=== PATIENT | female | born 1985 | race American Indian/Alaskan Native ===

== ENCOUNTER 2019-02-27 09:33 | Emergency (ER) | payer MEDICAID, OTHER ==
[2019-02-27 09:35] VITALS: BMI 22.9
[2019-02-27 09:47] VITALS: RESP 18; TEMP 98.9
[2019-02-27 10:38] LABS: BASO # 0.07 K/mm3 (0.0-2.0); BASO % 1.1 % (0.0-3.0); EOS # 0.3 (0.0-0.7); EOS % 4.5 % (1.5-5.0); HEMOGLOBIN 10.1 g/dL (12.0-16.0); LYMPH # 2.6 (1.2-3.4); LYMPH % 42.8 % (22.0-35.0); MEAN CELL VOLUME 74.8 fl (80.0-105.0); MEAN CORPUSCULAR HEMOGLOBIN 24.2 pg (25.0-35.0); MEAN CORPUSCULAR HGB CONC 32.4 g/dl (31.0-37.0); MONO # 0.5 (0.1-0.6); MONO % 8.1 % (1.0-6.0); RBC 4.17 10^6/uL (3.5-6.1); RED CELL DISTRIBUTION WIDTH 14.4 % (11.5-14.5); WHITE BLOOD COUNT 6.2 10^3/uL (4.5-11.0)
[2019-02-27 10:42] LABS: ALB/GLOB RATIO 1.4 (1.1-1.8); ALBUMIN 3.9 g/dL (3.0-4.8); ALT/SGPT 13 U/L (7-56); AST/SGOT 19 U/L (14-36); BLOOD UREA NITROGEN 10 mg/dL (7-21); GFR NON-AFRICAN AMERICAN > 60
--- NOTE | 2019-02-27 10:43 | ED PDOC ---
Arrival/HPI - General Chief Complaint: Abdominal Pain Time Seen by Provider: 02/27/19 09:36 Historian: Patient - History of Present Illness Narrative History of Present Illness (Text): 02/27/19 10:41 33-year-old female presents today with continued vaginal bleeding for the past 8 days. Patient states she was seen at the [facility] 2 days ago for which she was told that she had a threatened miscarriage. Patient states that there was a gestational sac without a pole. Patient states her beta was 7000 at that time. Patient states last night she passed a large blood clot and states that the bleeding has now decreased significantly. Patient is still complaining of some lower abdominal cramping. Patient denies fevers or chills or urinary symptoms. Patient states while in [facility] 2 days ago she was given RhoGam injection as her blood type is O-. Patient is . Past Medical History - Provider Review Nursing Documentation Reviewed: Yes - Travel History Have you recently traveled outside [place] w/in the past 3 mons?: No - Tetanus Immunization Tetanus Immunization: Unknown - Past Medical History Past Medical History: No Previous - Psychiatric Hx Substance Use: No - Past Surgical History Past Surgical History: No Previous - Suicidal Assessment Feels Threatened In Home Enviroment: No Family/Social History - Physician Review Nursing Documentation Reviewed: Yes Family/Social History: Unknown Family HX Smoking Status: Current Some Days Smoker Hx Alcohol Use: Yes Frequency of alcohol use: Socially Hx Substance Use: No Allergies/Home Meds Allergies/Adverse Reactions: Allergies nut - unspecified Allergy (Verified 02/27/19 09:48) ANGIOEDEMA shellfish derived Allergy (Verified 02/27/19 09:48) ANGIOEDEMA Home Medications: Home Meds Medication Instructions Recorded Confirmed No Known Home Med 02/27/19 02/27/19 Review of Systems - Review of Systems Constitutional: absent: Fatigue, Fevers Respiratory: absent: SOB, Cough Cardiovascular: absent: Chest Pain, Palpitations Gastrointestinal: Abdominal Pain. absent: Nausea, Vomiting Genitourinary Female: Vaginal Bleeding. absent: Dysuria, Frequency, Hematuria Musculoskeletal: absent: Arthralgias, Back Pain, Neck Pain Skin: absent: Rash, Pruritis Neurological: absent: Headache, Dizziness Psychiatric: absent: Anxiety, Depression Physical Exam Vital Signs Reviewed: Yes Vital Signs Temp Pulse Resp BP Pulse Ox 02/27/19 09:42 98.9 F 88 18 109/74 100 Temperature: Afebrile Blood Pressure: Normal Pulse: Regular Respiratory Rate: Normal Appearance: Positive for: Well-Appearing, Non-Toxic, Comfortable Pain Distress: None Mental Status: Positive for: Alert and Oriented X 3 - Systems Exam Head: Present: Atraumatic Mouth: Present: Moist Mucous Membranes Neck: Present: Normal Range of Motion Respiratory/Chest: Present: Clear to Auscultation, Good Air Exchange. No: Respiratory Distress, Accessory Muscle Use Cardiovascular: Present: Regular Rate and Rhythm, Normal S1, S2. No: Murmurs Abdomen: Present: Tenderness (minimal suprapubic tenderness.). No: Distention, Rebound, Guarding Genitourinary/Pelvic Exam: Present: Normal External Genitalia, Vaginal Bleeding (small amount of blood noted in vaginal vault), Cervical os Closed, Other (chaparoned by Nadine CORREA). No: Vaginal Lesions, Adenexal Tenderness, Adenexal Mass, Cervical Motion Tendernes Back: Present: Normal Inspection. No: CVA Tenderness, Midline Tenderness, Paraspinal Tenderness Upper Extremity: Present: Normal Inspection Lower Extremity: Present: Normal Inspection Neurological: Present: GCS=15, Speech Normal Skin: Present: Warm, Dry, Normal Color. No: Rashes Psychiatric: Present: Alert, Oriented x 3 Medical Decision Making ED Course and Treatment: 02/27/19 10:44 Patient is nontoxic well appearing in no distress. vital signs are stable. I spoke with Dr Live at [facility] and she confirmed that the patient did receive 300 mcg of RhoGam on 02/25/2019. CBC: wnl CMP: wnl Beta hC.10 TYPE AND SCREEN:O- Urinalysis: + blood Ultrasound:FINDINGS: UTERUS: Measures 11 cm. Retroverted. ENDOMETRIUM: Measures 1.2 cm in diameter. CERVIX: Cervix length measures approximately 3.4 cm. RIGHT OVARY: Measures 2.8 x 3.0 x 3.4 cm. Blood flow is demonstrated. LEFT OVARY: Measures 2.8 x 1.8 x 2.8 cm. Blood flow is demonstrated. FREE FLUID: No significant free fluid noted. OTHER FINDINGS: None. IMPRESSION: No evidence of intrauterine gestational sac. If indeed the patient is based on serum beta HCG values, the sonographic findings represent either: Very early IUP; embryonic demise; ectopic gestation. Follow-up with serial quantitative serum beta HCG measurements and post OBGYN follow-up as clinically indicated, since ectopic gestation cannot be excluded based only on sonographic findings. Pt states she has US 2 days ago at [facility] [place] [place] and she had gestational sac without pole with a beta 7038 (paperwork from other hospital confirms). case discussed with dr. tejada in depth; i advised him of labs, US and previous 300mcg of rhogam 2 days ago and current results. He states there is no need for an additional dose of rhogam. Discussed all the results the patient. advised f/u with the urogynecology physician within the next 2 days. advised immediate return if symptoms worsen,persist or if new symptoms develop. Impression: vaginal bleeding, threatened miscarriage Tylenol every 4 hours as needed for pain Increase fluids Followup with the [facility] within the next 2 days Return immediately if symptoms worsen persist or if new symptoms develop: High fevers, heavy bleeding, severe abdominal pain, vomiting, diarrhea, dizziness or weakness or any other concerning symptoms develop. Repeat beta hCG in 48 hours Reassessment Condition: Re-examined - RAD Interpretation Radiology Orders: 02/27/19 10:11 TRANSVAGINAL [US] Stat Disposition/Present on Arrival - Present on Arrival Any Indicators Present on Arrival: No History of DVT/PE: No History of Uncontrolled Diabetes: No Urinary Catheter: No History of Decub. Ulcer: No History Surgical Site Infection Following: None - Disposition Have Diagnosis and Disposition been Completed?: Yes Diagnosis: Threatened miscarriage Disposition: HOME/ ROUTINE Disposition Time: 10:45 Patient Plan: Discharge Condition: GOOD Discharge Instructions (ExitCare): Threatened Miscarriage (DC) Additional Instructions: Tylenol every 4 hours as needed for pain Increase fluids Followup with the [facility] within the next 2 days Return immediately if symptoms worsen persist or if new symptoms develop: High fevers, heavy bleeding, severe abdominal pain, vomiting, diarrhea, dizziness or weakness or any other concerning symptoms develop. Repeat beta hCG in 48 hours Referrals: Luis Alberto Tejada MD [Staff Provider] - [facility]Outside[facility] - [facility] - Follow up with primary [facility] [Outside] - Follow up with primary Forms: [email or web address] (German), WORK NOTE
[2019-02-27 11:10] LABS: URINE BILIRUBIN NEGATIVE (NEGATIVE); URINE BLOOD LARGE (NEGATIVE); URINE GLUCOSE (UA) NEGATIVE (NEGATIVE); URINE LEUKOCYTE ESTERASE NEGATIVE Leu/uL (NEGATIVE); URINE PROTEIN NEGATIVE mg/dL (<30 mg/dL); URINE UROBILINOGEN 0.2 E.U./dL (<1 E.U./dL)
[2019-02-27 11:12] LABS: URINE APPEARANCE SL CLOUDY (CLEAR); URINE COLOR YELLOW (YELLOW)
[2019-02-27 11:17] LABS: URINE BACTERIA MANY /hpf; URINE RBC 25 - 30 /hpf (0-2)
--- NOTE | 2019-02-27 11:26 | US ---
Date of service: 02/27/2019 HISTORY: vaginal bleeding + preg,previous US sac withoutFP COMPARISON: None available. TECHNIQUE: Transvaginal pelvic ultrasound FINDINGS: UTERUS: Measures 11 cm. Retroverted. ENDOMETRIUM: Measures 1.2 cm in diameter. CERVIX: Cervix length measures approximately 3.4 cm. RIGHT OVARY: Measures 2.8 x 3.0 x 3.4 cm. Blood flow is demonstrated. LEFT OVARY: Measures 2.8 x 1.8 x 2.8 cm. Blood flow is demonstrated. FREE FLUID: No significant free fluid noted. OTHER FINDINGS: None. IMPRESSION: No evidence of intrauterine gestational sac. If indeed the patient is based on serum beta HCG values, the sonographic findings represent either: Very early IUP; embryonic demise; ectopic gestation. Follow-up with serial quantitative serum beta HCG measurements and post OBGYN follow-up as clinically indicated, since ectopic gestation cannot be excluded based only on sonographic findings.
[2019-02-27 12:48] VITALS: BP 104/69; PULSE 78; O2SAT 98
== END 2019-02-27 12:48 | disposition home or self-care (01) ==
LOC: ED 09:33
DX: O20.0 Threatened abortion (principal)

== ENCOUNTER 2019-03-02 09:42 | Emergency (ER) | payer MEDICAID ==
[2019-03-02 09:42] VITALS: BMI 22.9
[2019-03-02 10:20] VITALS: BP 119/78; PULSE 70; RESP 18; TEMP 98.7; O2SAT 100
--- NOTE | 2019-03-02 10:42 | ED PDOC ---
Arrival/HPI - General Chief Complaint: Female Genitourinary Time Seen by Provider: 03/02/19 10:35 Historian: Patient - History of Present Illness Narrative History of Present Illness (Text): 03/02/19 10:42 33 year old female, with past medical history of asthma, presents to the ED for repeat beta hCG today. Patient reports persistent vaginal bleeding and lower abdominal cramping but denies any other medical complaints. Patient denies any fevers, chills, headache, dizziness, chest pain, shortness of breath, dyspnea on exertion, cough, diaphoresis, nausea, vomiting, diarrhea, back pain, neck pain, or any other complaints. Symptom Onset: Gradual Symptom Course: Unchanged Activities at Onset: Light Context: Home Past Medical History - Provider Review Nursing Documentation Reviewed: Yes - Infectious Disease Hx of Infectious Diseases: None - Tetanus Immunization Tetanus Immunization: Unknown - Reproductive Menopause: No - Past Medical History Past Medical History: No Previous - Psychiatric Hx Substance Use: No - Past Surgical History Past Surgical History: No Previous - Anesthesia Hx Anesthesia: No - Suicidal Assessment Feels Threatened In Home Enviroment: No Family/Social History - Physician Review Nursing Documentation Reviewed: Yes Family/Social History: No Known Family HX Smoking Status: Current Some Days Smoker Hx Alcohol Use: Yes Hx Substance Use: No Allergies/Home Meds Allergies/Adverse Reactions: Allergies nut - unspecified Allergy (Verified 03/02/19 10:21) ANGIOEDEMA shellfish derived Allergy (Verified 03/02/19 10:21) ANGIOEDEMA Home Medications: Home Meds Medication Instructions Recorded Confirmed No Known Home Med 02/27/19 02/27/19 Review of Systems - Physician Review All systems were reviewed & negative as marked: Yes - Review of Systems Constitutional: absent: Fevers Eyes: absent: Vision Changes Respiratory: absent: SOB, Cough Cardiovascular: absent: Chest Pain Gastrointestinal: Abdominal Pain. absent: Diarrhea, Nausea, Vomiting Genitourinary Female: Vaginal Bleeding. absent: Dysuria, Urine Output Changes Musculoskeletal: absent: Back Pain, Neck Pain Skin: absent: Rash Neurological: absent: Headache, Dizziness, Focal Weakness Endocrine: absent: Diaphoresis Psychiatric: absent: Anxiety Physical Exam Vital Signs Reviewed: Yes Vital Signs Temp Pulse Resp BP Pulse Ox 03/02/19 10:17 98.7 F 70 18 119/78 100 Temperature: Afebrile Blood Pressure: Normal Pulse: Regular Respiratory Rate: Normal Appearance: Positive for: Well-Appearing, Non-Toxic, Comfortable Pain Distress: None Mental Status: Positive for: Alert and Oriented X 3 - Systems Exam Head: Present: Atraumatic, Normocephalic Pupils: Present: PERRL Extroacular Muscles: Present: EOMI Conjunctiva: Present: Normal Neck: Present: Normal Range of Motion Respiratory/Chest: Present: Clear to Auscultation, Good Air Exchange. No: Respiratory Distress, Accessory Muscle Use Cardiovascular: Present: Regular Rate and Rhythm, Normal S1, S2. No: Murmurs Abdomen: No: Tenderness, Distention, Peritoneal Signs Back: Present: Normal Inspection Upper Extremity: Present: Normal Inspection. No: Cyanosis, Edema Lower Extremity: Present: Normal Inspection. No: Edema Neurological: Present: GCS=15, CN II-XII Intact, Speech Normal Skin: Present: Warm, Dry, Normal Color. No: Rashes Psychiatric: Present: Alert, Oriented x 3, Normal Insight, Normal Concentration Medical Decision Making ED Course and Treatment: 03/02/19 10:45 Impression: 33 year old female presents to the ED for repeat beta hCG. suspect miscarriage ro anmemia. Plan: -- Reassess and disposition Prior Visits: Notes and results from previous visits were reviewed. Progress Notes: The patient declines to have further medical evaluation and treatment and wishes to leave the Emergency Department. This action is against my medical advice to the patient, and with informed refusal. The patient was told that evaluation and treatment are necessary and a full explanation of the rationale was given. The risks of leaving were explained to the patient and include, but are not limited to, worsening of known or currently unknown conditions, permanent disability and from undiagnosed or untreated conditions The patient has the capacity to make this informed decision and understands the clinical situation and my explanation of the risks of leaving. The patient voluntarily accepts these risks, and a signed AMA form documenting our conversation was obtained. The patient was given the opportunity to ask questions and reconsider. The patient was encouraged to return to the Emergency Department at any time for further care. 03/02/19 14:56 reufse labs and pelvic. asking for dc as has to pic up child. - Scribe Statement The provider has reviewed the documentation as recorded by the Scribe Charlie Miner. All medical record entries made by the Scribe were at my direction and per sonally dictated by me. I have reviewed the chart and agree that the record accurately reflects my personal performance of the history, physical exam, medical decision making, and the department course for this patient. I have also personally directed, reviewed, and agree with the discharge instructions and disposition. Disposition/Present on Arrival - Present on Arrival Any Indicators Present on Arrival: No History of DVT/PE: No History of Uncontrolled Diabetes: No Urinary Catheter: No History of Decub. Ulcer: No History Surgical Site Infection Following: None - Disposition Have Diagnosis and Disposition been Completed?: Yes Diagnosis: Left against medical advice, Vaginal bleeding Disposition: AGAINST MEDICAL ADVICE Disposition Time: 10:00 Patient Problems: Current Active Problems Problem Status Onset Left against medical advice Acute Vaginal bleeding Acute Condition: UNKNOWN Discharge Instructions (ExitCare): Heavy Periods (DC), Leaving Against Medical Advice Additional Instructions: follow up with obgyn. return to any er with worsening. Forms: [employer] [facility] (Latvian)
== END 2019-03-02 10:41 | disposition left against medical advice (07) ==
LOC: ED 09:42
DX: N93.9 Abnormal uterine and vaginal bleeding, unspecified (principal)

== ENCOUNTER 2019-03-19 13:39 | Emergency (ER) | payer MEDICAID ==
[2019-03-19 13:40] VITALS: BMI 22.9
[2019-03-19 13:59] VITALS: O2SAT 100
[2019-03-19] MEDS ORDERED: Aluminum Hydroxide/Magnesium 30 ML, DiphenhydrAMINE 75 MG, Lidocaine 2% Viscous 30 ML PO ONE (14:01)
[2019-03-19 14:03] VITALS: TEMP 98.1
--- NOTE | 2019-03-19 14:04 | ED PDOC ---
Arrival/HPI - General Chief Complaint: ENT Problem Historian: Patient - History of Present Illness Narrative History of Present Illness (Text): 03/19/19 14:05 Patient is a 33 year old female, with a past medical history of asthma, who presents to the emergency department complaining of sore throat since 5 days. Patient notes associated swollen glands, difficulty swallowing, post nasal drip, and nasal congestion. Patient states difficulty swallowing began 2 days ago. She states gargling salt water 3 times a day with no improvement. Patient denies sick contact with children. Denies tonsillectomy. Patient denies fevers, chills, night sweats, vision changes, headache, dizziness, shortness of breath, cough, chest pain, abdominal pain, diarrhea, nausea, vomiting, dysuria, hematuria, back pain, neck pain, rash, diaphoresis, or any other complaint. Time/Duration: < week (5 days) Symptom Onset: Gradual Activities at Onset: Light Context: Home Past Medical History - Provider Review Nursing Documentation Reviewed: Yes - Infectious Disease Hx of Infectious Diseases: None - Tetanus Immunization Tetanus Immunization: Unknown - Past Medical History Past Medical History: No Previous - Psychiatric Hx Substance Use: No - Past Surgical History Past Surgical History: No Previous - Anesthesia Hx Anesthesia: No - Suicidal Assessment Feels Threatened In Home Enviroment: No Family/Social History - Physician Review Nursing Documentation Reviewed: Yes Family/Social History: Unknown Family HX Smoking Status: Current Some Days Smoker Hx Alcohol Use: Yes Hx Substance Use: No Allergies/Home Meds Allergies/Adverse Reactions: Allergies nut - unspecified Allergy (Verified 03/19/19 13:57) ANGIOEDEMA shellfish derived Allergy (Verified 03/19/19 13:57) ANGIOEDEMA Review of Systems - Physician Review All systems were reviewed & negative as marked: Yes - Review of Systems Constitutional: absent: Fevers, Night Sweats, Other (chills) Eyes: absent: Vision Changes ENT: Sore Throat, Sinus Congestion, Other (post nasal drip) Respiratory: absent: SOB, Cough Cardiovascular: absent: Chest Pain Gastrointestinal: absent: Abdominal Pain, Diarrhea, Nausea, Vomiting Genitourinary Female: absent: Dysuria, Hematuria Musculoskeletal: absent: Back Pain, Neck Pain Skin: absent: Rash Neurological: absent: Headache Hemo/Lymphatic: Adenopathy (swollen glands) Physical Exam Vital Signs Reviewed: Yes Vital Signs Temp Pulse Resp Pulse Ox 03/19/19 14:03 98.1 F 03/19/19 13:57 81 16 100 Pulse: Regular Respiratory Rate: Normal Appearance: Positive for: Well-Appearing, Non-Toxic, Comfortable Pain Distress: None Mental Status: Positive for: Alert and Oriented X 3 - Systems Exam Head: Present: Atraumatic, Normocephalic Pupils: Present: PERRL Extroacular Muscles: Present: EOMI Conjunctiva: Present: Normal Mouth: Present: Moist Mucous Membranes Pharnyx: Present: ERYTHEMA, TONSILS ENLARGED. No: EXUDATE (no tonsillar eudates) Neck: Present: Normal Range of Motion, Lymphadenopathy (mild anterior cervical lympadenopathy) Respiratory/Chest: Present: Clear to Auscultation, Good Air Exchange. No: Respiratory Distress, Accessory Muscle Use, Wheezes, Rales, Rhonchi Cardiovascular: Present: Regular Rate and Rhythm, Normal S1, S2. No: Murmurs, Rub, Gallop Abdomen: Present: Normal Bowel Sounds. No: Tenderness, Distention, Peritoneal Signs, Rebound, Guarding Back: Present: Normal Inspection Upper Extremity: Present: Normal Inspection. No: Cyanosis, Edema Lower Extremity: Present: Normal Inspection. No: Edema Neurological: Present: GCS=15, CN II-XII Intact, Speech Normal Skin: Present: Warm, Dry, Normal Color. No: Rashes Psychiatric: Present: Alert, Oriented x 3, Normal Insight, Normal Concentration Medical Decision Making ED Course and Treatment: 03/19/19 14:05 Impression: 33 year old female who presents to the emergency department complaining of sore throat since 5 days. Plan: -- Maalox -- Benadryl -- Rapid Strep -- Reassess and disposition Prior Visits: Notes and results from previous visits were reviewed. Progress Notes: 03/19/19 14:40 Rapid Strep negative for strep. Patient updated on lab findings and advised to follow up with her ENT surgeon. She will be given a script as well as follow up. She demonstrates understanding and agrees with the plan. She is stable for discharge. - Lab Interpretations Lab Results: Lab Results 03/19/19 14:18: Grp A Beta Strep Ag Negative I have reviewed the lab results: Yes - Medication Orders Current Medication Orders: Al Hydrox/Mg Hydrox/Simethicone 30 ml/Diphenhydramine HCl 75 mg/Lidocaine 30 ml 0 ml PO ONCE ONE Stop: 03/19/19 14:02 - Scribe Statement The provider has reviewed the documentation as recorded by the Scribe Jordan Pettit All medical record entries made by the Scribe were at my direction and personally dictated by me. I have reviewed the chart and agree that the record accurately reflects my personal performance of the history, physical exam, medical decision making, and the department course for this patient. I have also personally directed, reviewed, and agree with the discharge instructions and disposition. Disposition/Present on Arrival - Present on Arrival Any Indicators Present on Arrival: No History of DVT/PE: No History of Uncontrolled Diabetes: No Urinary Catheter: No History of Decub. Ulcer: No History Surgical Site Infection Following: None - Disposition Have Diagnosis and Disposition been Completed?: Yes Diagnosis: Viral tonsillitis Disposition: HOME/ ROUTINE Disposition Time: 14:56 Patient Plan: Discharge Condition: IMPROVED Discharge Instructions (ExitCare): Viral Upper Respiratory Infection, Adult (DC), Viral Pharyngitis (DC) Print Language: SPANISH Additional Instructions: All medical record entries made by the Scribe were at my direction and personally dictated by me. I have reviewed the chart and agree that the record accurately reflects my personal performance of the history, physical exam, medical decision making, and the department course for this patient. I have also personally directed, reviewed, and agree with the discharge instructions and disposition. Please follow up with your ENT physician in 1 week Please take medications as prescribed Prescriptions: Mag&Al/Simet/Diphen/Lido [First Magic Mouthwash] 30 ml MM Q6H #1 kit Methylprednisolone [Medrol Dose Pack (21 tabs)] 4 mg PO DAILY #21 mg Referrals: Atilio Vela DO [Staff Provider] - Follow up with primary Forms: [employer] (Greek), WORK NOTE
[2019-03-19 14:40] VITALS: BP 117/85; PULSE 65; RESP 18
--- NOTE | 2019-03-20 12:44 | ED PDOC ---
ED Additional Note - Physician Additional Note Physician Additional Note: Patient with positive throat culture for strep. I called the patient and spoke with her regarding the positive throat culture. Rx for amoxicillin 875 twice daily for 10 days was sent electronically to the patient's [facility] [address].
== END 2019-03-19 15:10 | disposition home or self-care (01) ==
LOC: ED 13:39
DX: J03.90 Acute tonsillitis, unspecified (principal); F17.210 Nicotine dependence, cigarettes, uncomplicated